=== PATIENT | female | born 1955 | race Caucasian/White ===

== ENCOUNTER → 2020-04-04 10:45 | Outpatient (BNVA) | payer OTHER, SELFPAY | PROVIDERS: PCP Family Medicine; Visit Provider Internal Medicine | DX: M35.3 Polymyalgia rheumatica (principal); R76.8 Other specified abnormal immunological findings in serum; R70.0 Elevated erythrocyte sedimentation rate; D86.9 Sarcoidosis, unspecified; Z51.81 Encounter for therapeutic drug level monitoring; Z79.52 Long term (current) use of systemic steroids | CPT/HCPCS: 99203; 99204 ==

== ENCOUNTER 2020-04-04 12:20 | Outpatient (CLI) | payer OTHER, SELFPAY ==
--- NOTE | 2020-04-04 12:33 | XR_ITS ---
WS: [id number] RIGHT HAND: 2 VIEW(S) TECHNIQUE: PA and lateral. HISTORY: hand pain CCP + COMPARISON: None available. No acute fracture or dislocation. Mild narrowing of the interphalangeal joint spaces. No erosions or periostitis. Use osteopenia. No ch ondrocalcinosis. XR/XR hand RT 2V [id number] IMPRESSION: Diffuse osteopenia with mild interphalangeal joint space narrowing.
--- NOTE | 2020-04-04 12:33 | XR_ITS ---
NOTE: Report was unsigned for reason: Order was edited. Original Signature date and time was: 04/04/20 @9855 WS: [id number] Bilateral hips. HISTORY: Hip pain. COMPARISON: None. RIGHT hip 2 view. Very mild irregularity along the superior acetabulum. No joint space narrowing. No osteophyte. No erosions or peristalsis. LEFT hip 2 view. Very mild irregularity involving the superior acetabulum. No significant narrowing of the joint space. No osteophytosis or soft tissue abnormality. MTDD XR/XR hip BI 3-4V wo/w pel [id number] IMPRESSION: Mild bilateral hip joint. 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
--- NOTE | 2020-04-04 12:33 | XR_ITS ---
WS: [id number] LEFT HAND: 2 VIEW(S) TECHNIQUE: PA and lateral. HISTORY: hand pain COMPARISON: None available. No acute fracture or dislocation. Very mild narrowing of the interphalangeal joint spaces and diffuse osteopenia. No erosions or perios titis. No soft tissue calcifications. XR/XR hand LT 2V [id number] IMPRESSION: Diffuse osteopenia and minimal osteoarthritis.
[2020-04-04 14:15] LABS: Add Urine Microscopic? NO
[2020-04-04 14:28] LABS: Bilirubin Urine Neg (Negative); Blood Urine Neg (Negative); Glucose Urine UA Norm (Normal); Ketones Urine Negative (Negative); Leukocyte Esterase Urine Negative (Negative); Nitrate Urine Negative (Negative); Protein Urine Neg (Negative); Urine Appearance Clear (CLEAR); Urine Color Yellow (Yellow); Urobilinogen Urine Norm (Negative); pH Urine 5 (5-7)
[2020-04-04 14:42] LABS: Hepatitis B Core AB, Total Non-Reactive (Nonreactive); Hepatitis B Surface Antigen Non-Reactive (Nonreactive); Hepatitis C Virus Antibody Non-Reactive (Nonreactive)
[2020-04-10 10:32] LABS: ANCA Interp Negative (Negative)
== END 2020-04-04 12:21 | disposition home or self-care (01) ==
LOC: RAD 12:30
PROVIDERS: PCP Family Medicine; Visit Provider Internal Medicine
DX: M25.551 Pain in right hip (principal); M25.552 Pain in left hip; M35.3 Polymyalgia rheumatica; R76.8 Other specified abnormal immunological findings in serum; D86.9 Sarcoidosis, unspecified; R70.0 Elevated erythrocyte sedimentation rate; M85.842 Other specified disorders of bone density and structure, left hand; Z51.81 Encounter for therapeutic drug level monitoring; M85.841 Other specified disorders of bone density and structure, right hand
CPT/HCPCS: 36415; 73120; 73521; 73522; 81003; 83516; 86704; 86803; 87340

== ENCOUNTER → 2020-05-28 11:11 | Outpatient (BNVA) | payer OTHER, SELFPAY | PROVIDERS: PCP Family Medicine; Visit Provider Internal Medicine | DX: R70.0 Elevated erythrocyte sedimentation rate (principal) | CPT/HCPCS: 85651; 86140 ==